=== PATIENT | female | born 1965 | race African-American/Black ===

== ENCOUNTER → 2019-09-30 | Outpatient (CLI) | payer MEDICARE, MEDICAID ==
[~2019-09-30] MED LIST: NARCO; NORFLEX
== END | disposition home or self-care (01) ==
LOC: RAD 10:11
PROVIDERS: ATTEND Neurological Surgery
DX: M47.816 Spondylosis without myelopathy or radiculopathy, lumbar region (principal)
CPT/HCPCS: 72114